=== PATIENT | male | born 2000 | race Caucasian/White ===

== ENCOUNTER 2020-11-05 17:48 | Emergency (ER) | payer OTHER ==
[~2020-11-05] VITALS: Ht 172.7 cm; Wt 75.0 kg
[2020-11-05 20:15] VITALS: BP 102/64; PULSE 71; TEMP 97.8
== END 2020-11-05 20:19 | disposition home or self-care (01) ==
LOC: COL.ER 17:48
DX: S42.001A Fracture of unspecified part of right clavicle, initial encounter for closed fracture (principal); V19.9XXA Pedal cyclist (driver) (passenger) injured in unspecified traffic accident, initial encounter; Y93.55 Activity, bike riding